=== PATIENT | male | born 1970 | race Caucasian/White ===

== ENCOUNTER 2023-03-31 02:14 | Inpatient (IN) | payer OTHER ==
[~2023-03-31] VITALS: Ht 190.8 cm; Wt 111.8 kg
--- NOTE | 2023-03-31 04:04 | Tele-ICU Progress Note ---
Subjective Date Seen by a Provider: Mar 31, 2023 Subjective/Events-last exam This virtual visit was conducted using real time audio/video. Thank you for asking us to see this patient for critical care services due to NSTEMI and CHF. Recent events: Transferred from [facility], no records or X-Ray reports available. PMH: CHF, DM PE: Currently asymptomatic. VSS. O2 sat 92% on RA HEENT: No obvious masses, adenopathy or JVD. Chest: clear to auscultation. CV: RRR S1 S2 No murmur or added sounds. Abd: Non-tender. Bowel sounds Y. : Unremarkable. Joyce N. HOUSE BUILDER/psychiatric: Grossly intact. No obvious focal findings. Extremities: 3+ edema. Capillary refill < 3 seconds. Skin: unremarkable. Results: Elevated BNP 1700, Trop 248.. Available chart/ vitals / labs / images reviewed. Video assessment done using teleICU camera, rest of exam as per RN. A/P: Critical Care: critically ill patient. Cont. Diuressis with Lasix. Cont ASA and SSI. Cardiac cath later today. Discussed with SACHA Garcia. Asked RN to reach out to eICU if any questions or concerns later. Time spent with patient/coordination of care with other health professionals (mins): 20 Sepsis Event Evaluation Height, Weight, BMI Height: '" Weight: lbs. oz. kg; BMI Method: Exam Exam Patient acknowledged, consented, and participated in this virtual visit which was conducted using real time audio/video Height & Weight Height: '" Weight: lbs. oz. kg; BMI Method: General Appearance: No Apparent Distress, Thin Peripheral Pulses: 2+ Dorsalis Pedis (R), 2+ Left Dors-Pedis (L) (See free text) Assessment/Plan Assessment/Plan See free text. Critical Care: Critically Ill Patient AURELIA STANFORD MD Mar 31, 2023 04:04
[2023-03-31 05:36] LABS: BASOPHILS # (AUTO) 0.1 10^3/uL (0.0-0.1); BASOPHILS % (AUTO) 1 % (0-10); EOSINOPHILS # (AUTO) 0.2 10^3/uL (0.0-0.3); EOSINOPHILS % (AUTO) 2 % (0-10); HEMATOCRIT 41 % (40-54); HEMOGLOBIN 13.3 g/dL (13.3-17.7); LYMPHOCYTES # (AUTO) 2.4 10^3/uL (1.0-4.0); LYMPHOCYTES % (AUTO) 22 % (12-44); MEAN CORPUSCULAR HEMOGLOBIN 28 pg (25-34); MEAN CORPUSCULAR HGB CONC 33 g/dL (32-36); MEAN CORPUSCULAR VOLUME 86 fL (80-99); MEAN PLATELET VOLUME 9.8 fL (9.0-12.2); MONOCYTES # (AUTO) 0.9 10^3/uL (0.0-1.0); MONOCYTES % (AUTO) 9 % (0-12); NEUTROPHILS # (AUTO) 7.2 10^3/uL (1.8-7.8); NEUTROPHILS % (AUTO) 67 % (42-75); PLATELET COUNT 318 10^3/uL (130-400); WHITE BLOOD COUNT 10.9 10^3/uL (4.3-11.0)
[2023-03-31 05:56] LABS: POTASSIUM 3.6 MMOL/L (3.6-5.0)
[2023-03-31 05:57] LABS: CALCIUM 8.4 MG/DL (8.5-10.1)
[2023-03-31 06:02] LABS: CREATININE SERUM 0.86 MG/DL (0.60-1.30)
[2023-03-31] MEDS: inSUlin ASPART 1 UNIT/0.01 ML (PER UNIT) SC SCH ×4 (06:34→20:34)
--- NOTE | 2023-03-31 07:44 | Consultation-Cardiology ---
HPI-Cardiology Cardiology Consultation Date of Consultation 03/31/23 Date of Admission Time Seen by Provider: 07:41 Indication: Shortness of breath HPI 52-year-old gentleman with questionable history of congestive heart failure admitted for increasing swelling and shortness of breath. Denied any chest pain or palpitation Patient reported that he is following with Dr. Min at [place], reporting that he had a cardiac catheterization 6 or 7 years ago and it was normal. He denied any syncope or near syncopal episode transferred from [facility], reportedly had mild elevation in troponin. Home Medications & Allergies Allergies: Coded Allergies: No Known Drug Allergies (Unverified , 03/31/23) Home Medication List Reviewed: Yes [id number] Hx Patient Social History Employed/Student: unemployed Smoking Status: Never a Smoker Alcohol Use?: No Past Medical History Discussed below Family Medical History Significant Family History: No Pertinent Family Hx Review of Systems-General Review of Systems Constitutional: no symptoms reported, see HPI EENTM: see HPI, no symptoms reported Respiratory: see HPI; No cough; dyspnea on exertion; No hemoptysis, No orthopnea, No phlegm, No short of breath, No stridor, No wheezing, No other Cardiovascular: see HPI, edema Gastrointestinal: no symptoms reported, see HPI Genitourinary: no symptoms reported, see HPI Musculoskeletal: no symptoms reported, see HPI Skin: no symptoms reported, see HPI Psychiatric/Neurological: No Symptoms Reported, See HPI Reviewed Test Results Reviewed Test Results Lab Laboratory Tests Test 03/31/23 05:28 Range/Units White Blood Count 10.9 4.3-11.0 10^3/uL Red Blood Count 4.72 4.30-5.52 10^6/uL Hemoglobin 13.3 13.3-17.7 g/dL Hematocrit 41 40-54 % Mean Corpuscular Volume 86 80-99 fL Mean Corpuscular Hemoglobin 28 25-34 pg Mean Corpuscular Hemoglobin Concent 33 32-36 g/dL Red Cell Distribution Width 16.2 H 10.0-14.5 % Platelet Count 318 130-400 10^3/uL Mean Platelet Volume 9.8 9.0-12.2 fL Immature Granulocyte % (Auto) 0 % Neutrophils (%) (Auto) 67 42-75 % Lymphocytes (%) (Auto) 22 12-44 % Monocytes (%) (Auto) 9 0-12 % Eosinophils (%) (Auto) 2 0-10 % Basophils (%) (Auto) 1 0-10 % Neutrophils # (Auto) 7.2 1.8-7.8 10^3/uL Lymphocytes # (Auto) 2.4 1.0-4.0 10^3/uL Monocytes # (Auto) 0.9 0.0-1.0 10^3/uL Eosinophils # (Auto) 0.2 0.0-0.3 10^3/uL Basophils # (Auto) 0.1 0.0-0.1 10^3/uL Immature Granulocyte # (Auto) 0.0 0.0-0.1 10^3/uL Sodium Level 142 135-145 MMOL/L Potassium Level 3.6 3.6-5.0 MMOL/L Chloride Level 108 H 98-107 MMOL/L Carbon Dioxide Level 22 21-32 MMOL/L Anion Gap 12 5-14 MMOL/L Blood Urea Nitrogen 10 7-18 MG/DL Creatinine 0.86 0.60-1.30 MG/DL Estimat Glomerular Filtration Rate 105 BUN/Creatinine Ratio 12 Glucose Level 127 H 70-105 MG/DL Calcium Level 8.4 L 8.5-10.1 MG/DL Physical Exam Physical Exam Vital Signs Vital Signs - First Documented 03/31/23 03/31/23 03/31/23 03:38 03:45 03:53 Temp 36.7 Pulse 110 Resp 12 B/P (MAP) 119/87 (99) Pulse Ox 95 O2 Delivery Room Air Capillary Refill : Height, Weight, BMI Height: '" Weight: lbs. oz. kg; 30.82 BMI Method: General Appearance: No Apparent Distress, Thin Eyes: Bilateral Eye Normal Inspection, Bilateral Eye PERRL, Bilateral Eye EOMI HEENT: PERRL/EOMI, TMs Normal, Normal ENT Inspection, Pharynx Normal, Moist Mucous Membranes Neck: Full Range of Motion, Normal Inspection, Non Tender, Supple, Carotid Bruit Respiratory: Chest Non Tender, Normal Breath Sounds, No Accessory Muscle Use, No Respiratory Distress Cardiovascular: Regular Rate, Rhythm, No Edema, No Gallop, No JVD, No Murmur, Normal Peripheral Pulses Gastrointestinal: Normal Bowel Sounds, No Organomegaly, No Pulsatile Mass, Non Tender, Soft Back: Normal Inspection, No CVA Tenderness, No Vertebral Tenderness Extremity: Normal Capillary Refill, Normal Inspection, Normal Range of Motion, Non Tender, No Calf Tenderness, No Pedal Edema Neurologic/Psychiatric: Alert, Oriented x3, No Motor/Sensory Deficits, Normal Mood/Affect Skin: Normal Color, Warm/Dry Lymphatic: No Adenopathy A/P-Cardiology Admission Diagnosis Shortness of breath Peripheral edema Congestive heart failure Hypertension Assessment/Plan Shortness of breath, peripheral edema Improved overnight Feeling better at this time. Questionable congestive heart failure I will evaluate 2D echo We will give Lasix IV 40 mg 1 dose Congestive heart failure, reporting history of congestive heart failure. No signs of heart failure at this point. We will evaluate 2D echo Hypertension, monitor blood pressure Hyperglycemia/diabetes mellitus, managed by primary care physician Patient is clinically stable and feeling better. Okay for discharge after echocardiogram is done JOHN ZAMARRIPA MD Mar 31, 2023 07:44
[2023-03-31 08:21] LABS: POTASSIUM 3.5 MMOL/L (3.6-5.0)
[2023-03-31 08:22] LABS: CALCIUM 8.5 MG/DL (8.5-10.1)
[2023-03-31 08:26] LABS: CREATININE SERUM 0.87 MG/DL (0.60-1.30)
[2023-03-31] MEDS ORDERED: ASPIRIN 325 MG TABLET PO SCH (09:00)
[2023-03-31] MEDS ORDERED: FUROSEMIDE INJECTION 40 MG/4 ML VIAL IVP SCH (09:00)
[2023-03-31] MEDS ORDERED: POTASSIUM CHLORIDE 20 MEQ TABLET PO NR (10:30)
[2023-03-31] MEDS ORDERED: NITROGLYCERIN 0.4 MG SL TABLETS BTL 25'S SL PRN (11:00)
[2023-03-31] MEDS ORDERED: morphine INJ 4 MG/ML 1 ML (VIAL/SYRINGE) IV PRN (11:00)
--- NOTE | 2023-03-31 12:03 | History & Physical-Hospitalist ---
BEATRIZ MOODY 03/31/23 1203: History of Present Illness HPI/Chief Complaint Jake Rivas (Ernie) is a 52 yo male with a hx of CHF, T2DM, and HTN here for ev aluation of shortness of breath and edema. Pt is currently imprisoned. He experienced SOB this morning along with a burning sensation down his left arm and abnormal pedal edema. He was seen at [facility] and had a troponin of 248 and a BNP of 1700. CXR was unremarkable. He was transported to [facility] along with an officer where he was given 40 mg Lasix. An EKG showed sinus tachycardia with suspicion of an inferior infarct and an Echo showed an EF of 20-25%. Another troponin was drawn at 0.423 with a BNP of 1365. Vitals are unremarkable other than sinus tachycardia. Pt is currently not experiencing SOB. Sees Dr. Min at [facility] for cardiology. Pt mentioned the senior living decided to discontinue his Entresto, his last dose was yesterday morning. Patient had a cholecystectomy in February 2023. Source: patient Exam Limitations: no limitations Date Seen 03/31/23 Time Seen by a Provider: 11:00 Attending Physician No,Local Physician PCP Admitting Physician: Isaias Etienne MD Attending Physician: Isaias Etienne MD Referring Physician Date of Admission Mar 31, 2023 at 03:26 Home Medications & Allergies Home Medications Reviewed patient Home Medication Reconciliation performed by pharmacy medication reconciliations critical systems technician and/or nursing. Patients Allergies have been reviewed. Allergies Allergies Coded Allergies No Known Drug Allergies (Unverified03/31/23) Past Wigsbxh-Kdjmfq-Qvdtxr Hx Patient Social History Employed/Student: unemployed Tobacco Use?: No Smoking Status: Never a Smoker Smokeless Tobacco Frequency: Never a User Use of E-Cig and/or Vaping dev: No Substance use?: No Alcohol Use?: No Pt feels they are or have been: No Current Status Communicates: Verbally Primary Language: Dominican Preferred Spoken Language: Dominican Is interpretation needed?: No Family Medical History No Pertinent Family Hx Review of Systems Constitutional: no symptoms reported Respiratory: see HPI Cardiovascular: see HPI Gastrointestinal: no symptoms reported Genitourinary: no symptoms reported Musculoskeletal: no symptoms reported Skin: no symptoms reported Psychiatric/Neurological: No Symptoms Reported Physical Exam Physical Exam Vital Signs Vital Signs - First Documented 03/31/23 03/31/23 03/31/23 03:38 03:45 03:53 Temp 36.7 Pulse 110 Resp 12 B/P (MAP) 119/87 (99) Pulse Ox 95 O2 Delivery Room Air Capillary Refill : Height, Weight, BMI Height: '" Weight: lbs. oz. kg; 30.82 BMI Method: General Appearance: No Apparent Distress, WD/WN HEENT: PERRL/EOMI Neck: Full Range of Motion Respiratory: Lungs Clear, Normal Breath Sounds, No Respiratory Distress; No Crackles Cardiovascular: Regular Rate, Rhythm, No Gallop, No JVD, No Murmur, Normal Peripheral Pulses Gastrointestinal: Normal Bowel Sounds Extremity: Pedal Edema Neurologic/Psychiatric: Alert, Oriented x3, Normal Mood/Affect Skin: Normal Color, Warm/Dry Results Results/Procedures Labs Laboratory Tests 03/31/23 05:28 03/31/23 07:55 Patient resulted labs reviewed. Assessment/Plan Admission Diagnosis NSTEMI Admission Status: Observation Assessment and Plan NSTEMI repeat troponin in 6 hours for trend pt received aspirin, ordered nitroglycerin start morphine PRN Dr. Kraft will follow up CHF will talk to [facility] to restart Entresto continue Lasix 40 mg BID pending Echo report DM continue Jardiance HTN continue carvedilol BP well controlled Diagnosis/Problems Diagnosis/Problems (1) NSTEMI (non-ST elevation myocardial infarction) Status: Acute (2) CHF (congestive heart failure) Status: Chronic (3) T2DM (type 2 diabetes mellitus) Status: Chronic Qualifiers: Diabetes mellitus manager terminal insulin use: without detention use (4) HTN (hypertension) Status: Chronic Qualifiers: Hypertension type: primary hypertension Qualified Codes: I10 - Essential (primary) hypertension GAIL WAGGONER MD 03/31/23 1316: Assessment/Plan Assessment and Plan Patient with a history of cardiomyopathy who presented with shortness of breath and lower extremity edema and elevated troponin. He was admitted to the ICU and cardiology has been consulted. Repeat troponin is still been elevated so we plan to trend this and if it remains elevated he will likely need cardiac cath. He had recently been stopped on his Entresto but we discussed the need to restart that. Left voicemail for INFANT BABYSITTER at the long term. Supervisory-Addendum Brief Verification & Attestation Participated in pt care: history, MDM, physical Personally performed: exam, history, MDM, supervision of care Care discussed with: Medical Student Procedures: n/a Results interpretation: Verified all documentation Verification and Attestation of Medical Student E/M Service A medical student performed and documented this service in my presence. I reviewed and verified all information documented by the medical student and made modifications to such information, when appropriate. I personally performed the physical exam and medical decision making. Gail Waggoner, Mar 31, 2023,13:11 BEATRIZ MOODY Mar 31, 2023 12:03 GAIL WAGGONER MD Mar 31, 2023 13:16
[2023-03-31] MEDS ORDERED: EMPA10TA PO (12:08)
[2023-03-31] MEDS ORDERED: CARV3.122 PO (12:08)
[2023-03-31] MEDS ORDERED: POTA-330 PO (12:08)
[2023-03-31] MEDS ORDERED: SACU1TAB2 PO (12:08)
[2023-03-31] MEDS ORDERED: RT-ALBUINH INH (12:08)
[2023-03-31] MEDS ORDERED: ACET325T38 PO (12:08)
[2023-03-31] MEDS ORDERED: FURO40TA4 PO (12:08)
[2023-03-31] MEDS ORDERED: HEParin (CATH LAB) 2,000 ML IV ONE (13:26)
[2023-03-31] MEDS ORDERED: LIDOCAINE 1% INJ 20 ML VIAL ONE (13:26)
[2023-03-31] MEDS: ONDANSETRON INJECTION 4 MG/2 ML (SDV) IVP PRN (14:24)
[2023-03-31] MEDS ORDERED: VERAPAMIL 5 MG/2 ML (CALAN) VIAL IV ONE (15:31)
[2023-03-31] MEDS ORDERED: fentaNYL INJECTION 100 MCG/2 ML VIAL ONE (15:31)
[2023-03-31] MEDS ORDERED: NITRO DRIP 25000 MCG/D5W 250 ML IV ONE (15:32)
[2023-03-31] MEDS ORDERED: HEParin 1000 UNIT/ML (10ML VIAL) FOR BOLUS ONE (15:32)
[2023-03-31] MEDS ORDERED: MIDAZOLAM INJ 5 MG/5 ML VIAL ONE (15:32)
[2023-03-31] MEDS ORDERED: NS IV 1000 ML 1,000 ML ONE (15:43)
--- NOTE | 2023-03-31 16:22 | Cardiac Cath Report ---
Cardiac Cath Report Physician (s)/Shirt Turner (s) Physician JOHN ZAMARRIPA MD Pre-Procedure Diagnosis Pre-Procedure Diagnosis: CHF Post-Procedure Note Procedure Start Date: Mar 31, 2023 Name of Procedure: Left heart catheterization Findings/Procedure Note PROCEDURE NOTE: 52-year-old gentleman with severe cardiomyopathy, had elevated troponin. No recent cardiac work-up, last cardiac catheterization according to the patient was done in 2014. Cardiac angiogram was advised. After explaining the procedure to the patient, all pros and cons were explained, all questions were answered. The patient signed the consent and then he was placed in the cardiac catheterization laboratory. Groin was prepped in SL f ashion local anesthesia was used. Sheath placed in the right radial artery, [place] catheter was advanced to the left ventricular cavity, pressure was measured, pullback LV to aorta was done, engage the right and left coronary system, angiogram was done. At the end of the procedure the sheath was removed. Vascular band was used FINDINGS: Hemodynamics LV 103/31 end-diastolic pressure of 31 Aorta 103/71 mean of 79 ANATOMY: Left Main is free of obstructive disease Left Anterior Descending is free of obstructive disease Left Circumflex is free of obstructive disease Right Coronary Artery is dominant artery with no obstructive disease LV Gram was not done, pressure was measured CONCLUSION: Dilated nonischemic cardiomyopathy No significant obstructive disease in the coronary system DISCUSSION AND RECOMMENDATION: Continue to maximize medical therapy, no intervention is warranted Anesthesia Type: Conscious Sedation Estimated blood loss (mL): 10 ml Contrast Amount: 35 ml Total Radiation Dose: 453 mGy Post-Procedure Diagnosis Post-operative diagnosis: Congestive heart failure Type II myocardial infarction, secondary to congestive heart failure Diabetes mellitus Hypertension JOHN ZAMARRIPA MD Mar 31, 2023 16:22
--- NOTE | 2023-03-31 16:27 | Cardiac Procedure Note-CS/ASA ---
Pre-Procedure Note Pre-Op Procedure Note Date of Available H&P: Mar 31, 2023 Date H&P Reviewed: Mar 31, 2023 Time H&P Reviewed: 15:00 History & Physical: H&P Reviewed, Patient Examed, No changes noted Pre-Operative Diagnosis: CHF Moderate Sedation PreProcedure Time 15:00 ASA Score 3 Airway Lungs Heart ASA score ASA 1: a normal healthy patient ASA 2: a patient with a mild systemic disease (mid diabetes, controlled hypertension, obesity ASA 3: a patient with a severe systemic disease that limits activity (angina, COPD, prior Myocardial infarction) ASA 4: a patient with an incapacitating disease that is a constant threat to life (CHF, renal failure) ASA 5: a moribund patient not expected to survive 24 hrs. (ruptured aneurysm) ASA 6: a declared brain- patient whose organs are being harvested. For emergent operations, add the letter E after the classification Mallampati Classification Grade 3 Sedation Plan Analgesia, Amnesia, Plan communicated to team members, Discussed options with patient/fam, Discussed risks with patient/fam The patient is an appropriate candidate to undergo the planned procedure, sedation, and anesthesia. The patient immediately re-assessed prior to indication. JOHN ZAMARRIPA MD Mar 31, 2023 16:27
[2023-03-31] MEDS: NS IV 1000 ML 1,000 ML IV SCH (16:36)
[2023-03-31] MEDS: FUROSEMIDE 40 MG TABLET PO SCH (17:39)
[2023-03-31] MEDS: carvediloL 3.125 MG TABLET PO SCH (20:34)
[2023-04-01] MEDS: NS IV 1000 ML 1,000 ML IV SCH ×2 (03:18→13:07)
[2023-04-01] MEDS: inSUlin ASPART 1 UNIT/0.01 ML (PER UNIT) SC SCH ×2 (06:02→11:00)
[2023-04-01] MEDS: FUROSEMIDE 40 MG TABLET PO SCH (06:06)
[2023-04-01] MEDS ORDERED: POTASSIUM CHLORIDE 20 MEQ TABLET PO SCH (07:00)
[2023-04-01 07:33] LABS: POTASSIUM 4.1 MMOL/L (3.6-5.0)
[2023-04-01 07:34] LABS: CALCIUM 8.6 MG/DL (8.5-10.1)
[2023-04-01 07:39] LABS: CREATININE SERUM 0.91 MG/DL (0.60-1.30)
[2023-04-01 07:41] LABS: MAGNESIUM 2.2 MG/DL (1.6-2.4)
[2023-04-01] MEDS: carvediloL 3.125 MG TABLET PO SCH (08:11)
--- NOTE | 2023-04-01 08:50 | Cardiology Progress Note ---
Subjective Date Seen by Provider: Apr 01, 2023 Time Seen by Provider: 08:48 Subjective/Events-last exam Patient was seen at bedside, laying down comfortably, feeling better. Review of Systems General: No Chills, No Night Sweats, No Fatigue, No Malaise, No Appetite, No Other HEENT: No Head Aches, No Visual Changes, No Eye Pain, No Ear Pain, No Dysphasia, No Sinus Congestion, No Post Nasal Drip, No Sore Throat, No Other Pulmonary: No Dyspnea, No Cough, No Pleuritic Chest Pain, No Other Cardiovascular: No: Chest Pain, Palpitations, Orthopnea, Paroxysmal Noc. Dyspnea, Edema, Lt Headedness, Other Objective-Cardiology Exam Last Set of Vital Signs Vital Signs 04/01/23 04/01/23 07:57 08:00 Temp 36.0 Pulse 100 Resp 34 Pulse Ox 96 O2 Delivery Room Air I&O Intake and Output 04/01/23 00:00 Intake Total 3150 ml Output Total 5050 ml Balance -1900 ml Intake Oral 2150 ml IV Total 1000 ml Output Urine Total 5050 ml # Bowel Movements 1 Daily Weight Change No General: Alert, Oriented X3, Cooperative HEENT: Atraumatic, PERRLA Neck: Supple, No JVD, No Thyromegaly Lungs: Clear to Auscultation, Normal Air Movement Heart: Regular Rate, Normal S1, Normal S2, No Murmurs Abdomen: Normal Bowel Sounds, Soft, No Tenderness, No Hepatosplenomegaly, No Masses Extremities: No Clubbing, No Cyanosis, No Edema, Normal Pulses, No Tenderness/Swelling Skin: No Rashes, No Breakdown, No Significant Lesion Neuro: Normal Gait, Normal Speech, Strength at 5/5 X4 Ext, Normal Tone, Sens ation Intact Psych/Mental Status: Mental Status NL, Mood NL Results Lab Laboratory Tests 04/01/23 07:10 A/P-Cardiology Admission Diagnosis Shortness of breath Peripheral edema Congestive heart failure Hypertension Assessment/Plan Congestive heart failure, acute on chronic left ventricular systolic dysfunction, dilated cardiomyopathy Nonischemic in nature. Restart Coreg and Entresto, add Jardiance and Aldactone Okay for discharge 2D echo done on March 31, 2023 with four-chamber dilatation, ejection fraction 20 to 25%, moderate to severe mitral regurgitation, moderate tricuspid re gurgitation, PA pressure 65 to 70 mmHg Cardiac catheterization carried out on March 31, 2023 showing dilated cardiomyopathy with nonobstructive coronary disease. Hypertension, monitor blood pressure Hyperglycemia/diabetes mellitus, managed by primary care physician Patient is clinically stable and feeling better. Okay for discharge after echocardiogram is done Patient requested to follow-up with his primary embosser operator JOHN Davis MD Apr 01, 2023 08:50
[2023-04-01] MEDS ORDERED: SACU1TAB2 PO (08:52)
[2023-04-01] MEDS ORDERED: SPIR25TA5 PO (08:52)
[2023-04-01] MEDS ORDERED: ASPIRIN enteric coated 81MG TABLET PO SCH (09:00)
[2023-04-01] MEDS ORDERED: LOSARTAN 25 MG TABLET PO SCH (09:00)
[2023-04-01] MEDS ORDERED: NON-FORMULARY MEDICATION 1 EA EA (Potassium Chloride 20 MEQ) PO SCH (09:00)
[2023-04-01] MEDS ORDERED: EMPAGLIFLOZIN 10 MG TABLET PO SCH (09:00)
[2023-04-01] MEDS ORDERED: LOSA25TA41 PO (10:07)
--- NOTE | 2023-04-01 10:10 | Discharge Inst-Simple/Standard ---
Discharge Inst-Standard Discharge Medications New, Converted or Re-Newed RX: Transmitted to Pharmacy Patient Instructions/Follow Up Plan of Care/Instructions/FU: Please continue to take your medications as written. Please follow up with your primary care doctor to follow up this hospital stay. Activity as Tolerated: Yes Discharge Diet: Low Sodium Diet Return to The Hospital For: Chest pain, shortness of breath, fever, weakness, if you feel you are getting worse. GAIL CHAVIRA MD Apr 01, 2023 10:10
--- NOTE | 2023-04-01 10:48 | Discharge Summary ---
Diagnosis/Chief Complaint Date of Admission Mar 31, 2023 at 03:26 Date of Discharge Discharge Date: Apr 01, 2023 Admission Diagnosis NSTEMI Primary Care No,Local Physician Discharge Diagnosis (1) NSTEMI (non-ST elevation myocardial infarction) Status: Acute (2) CHF (congestive heart failure) Status: Chronic (3) T2DM (type 2 diabetes mellitus) Status: Chronic (4) HTN (hypertension) Status: Chronic Discharge Summary Discharge Physical Exam Allergies: Coded Allergies: No Known Drug Allergies (Unverified , 03/31/23) Vitals & I&Os Vital Signs Date Time Temp Pulse Resp B/P (MAP) Pulse Ox O2 Delivery O2 Flow Rate FiO2 04/01/23 10:00 114 36 93 Room Air 04/01/23 07:57 36.0 Hospital Course Labs (last 24 hrs) Laboratory Tests 03/31/23 11:57: Troponin I 0.430*H 03/31/23 12:00: Glucometer 159H 03/31/23 13:07: Glucometer 152H 03/31/23 16:45: Glucometer 131H 03/31/23 20:19: Glucometer 200H 04/01/23 05:59: Glucometer 164H 04/01/23 07:10: Sodium Level 136, Potassium Level 4.1, Chloride Level 105, Carbon Dioxide Level 21, Anion Gap 10, Blood Urea Nitrogen 18, Creatinine 0.91, Estimat Glomerular Filtration Rate 102, BUN/Creatinine Ratio 20, Glucose Level 178H, Calcium Level 8.6, Magnesium Level 2.2 04/01/23 10:42: Glucometer 189H Microbiology 03/31/23 MRSA Screen - Final, Complete MRSA not isolated Patient resulted labs reviewed. Pending Labs Laboratory Tests 04/01/23 05:59: Glucometer 164 04/01/23 07:10: Sodium Level 136, Potassium Level 4.1, Chloride Level 105, Carbon Dioxide Level 21, Anion Gap 10, Blood Urea Nitrogen 18, Creatinine 0.91, Estimat Glomerular Filtration Rate 102, BUN/Creatinine Ratio 20, Glucose Level 178, Calcium Level 8.6, Magnesium Level 2.2 04/01/23 10:42: Glucometer 189 Discharge Home Medications: Active Scripts Active Losartan Potassium 25 Mg Tablet 25 Mg PO DAILY Spironolactone 25 Mg Tablet 25 Mg PO DAILY Reported Ventolin Hfa (Albuterol Sulfate) 1 Puff Puff 2 Puff INH BID PRN Potassium Chloride 20 Meq Tablet.er 20 Meq PO DAILY Jardiance (Empagliflozin) 10 Mg Tablet 10 Mg PO DAILY Furosemide 40 Mg Tablet 40 Mg PO BID Carvedilol 3.125 Mg Tablet 3.125 Mg PO BID Tylenol (Acetaminophen) 325 Mg Tablet 650 Mg PO BID PRN Instructions to patient/family Please see electronic discharge instructions given to patient. Problem Qualifiers (1) T2DM (type 2 diabetes mellitus): Diabetes mellitus ferry terminal supervisor insulin use: without ferry terminal supervisor use (2) HTN (hypertension): Hypertension type: primary hypertension Qualified Codes: I10 - Essential (primary) hypertension GAIL CHAVIRA MD Apr 01, 2023 10:48
--- NOTE | 2023-04-01 10:56 | Discharge Summary ---
BEATRIZ MOODY 04/01/23 1056: Diagnosis/Chief Complaint Date of Admission Mar 31, 2023 at 03:26 Date of Discharge Discharge Date: Apr 01, 2023 Admission Diagnosis NSTEMI Primary Care No,Local Physician Discharge Diagnosis (1) Type 2 myocardial infarction due to heart failure Status: Resolved (2) CHF (congestive heart failure) Status: Chronic (3) T2DM (type 2 diabetes mellitus) Status: Chronic (4) HTN (hypertension) Status: Chronic Discharge Summary Discharge Physical Exam Allergies: Coded Allergies: No Known Drug Allergies (Unverified , 03/31/23) Vitals & I&Os Vital Signs Date Time Temp Pulse Resp B/P (MAP) Pulse Ox O2 Delivery O2 Flow Rate FiO2 04/01/23 10:00 114 36 93 Room Air 04/01/23 07:57 36.0 General Appearance: No Apparent Distress, WD/WN HEENT: PERRL/EOMI Respiratory: Lungs Clear, Normal Breath Sounds, No Respiratory Distress Cardiovascular: Regular Rate, Rhythm, No Gallop, No JVD, No Murmur, Normal Peripheral Pulses Gastrointestinal: Normal Bowel Sounds Extremity: Pedal Edema (+1 right ankle) Skin: Normal Color, Warm/Dry Neurologic/Psychiatric: Alert, Oriented x3, Normal Mood/Affect Hospital Course Labs (last 24 hrs) Laboratory Tests 03/31/23 11:57: Troponin I 0.430*H 03/31/23 12:00: Glucometer 159H 03/31/23 13:07: Glucometer 152H 03/31/23 16:45: Glucometer 131H 03/31/23 20:19: Glucometer 200H 04/01/23 05:59: Glucometer 164H 04/01/23 07:10: Sodium Level 136, Potassium Level 4.1, Chloride Level 105, Carbon Dioxide Level 21, Anion Gap 10, Blood Urea Nitrogen 18, Creatinine 0.91, Estimat Glomerular Filtration Rate 102, BUN/Creatinine Ratio 20, Glucose Level 178H, Calcium Level 8.6, Magnesium Level 2.2 04/01/23 10:42: Glucometer 189H Microbiology 03/31/23 MRSA Screen - Final, Complete MRSA not isolated Patient resulted labs reviewed. Pending Labs Laboratory Tests 04/01/23 05:59: Glucometer 164 04/01/23 07:10: Sodium Level 136, Potassium Level 4.1, Chloride Level 105, Carbon Dioxide Level 21, Anion Gap 10, Blood Urea Nitrogen 18, Creatinine 0.91, Estimat Glomerular Filtration Rate 102, BUN/Creatinine Ratio 20, Glucose Level 178, Calcium Level 8.6, Magnesium Level 2.2 04/01/23 10:42: Glucometer 189 Discharge Home Medications: Active Scripts Active Losartan Potassium 25 Mg Tablet 25 Mg PO DAILY Spironolactone 25 Mg Tablet 25 Mg PO DAILY Reported Ventolin Hfa (Albuterol Sulfate) 1 Puff Puff 2 Puff INH BID PRN Potassium Chloride 20 Meq Tablet.er 20 Meq PO DAILY Jardiance (Empagliflozin) 10 Mg Tablet 10 Mg PO DAILY Furosemide 40 Mg Tablet 40 Mg PO BID Carvedilol 3.125 Mg Tablet 3.125 Mg PO BID Tylenol (Acetaminophen) 325 Mg Tablet 650 Mg PO BID PRN Instructions to patient/family Please see electronic discharge instructions given to patient. GAIL CHAVIRA MD 04/01/23 1217: Discharge Summary Discharge Physical Exam Allergies: Coded Allergies: No Known Drug Allergies (Unverified , 03/31/23) Supervisory-Addendum Brief Verification & Attestation Participated in pt care: history, MDM, physical Personally performed: exam, history, MDM, supervision of care Care discussed with: Medical Student Procedures: n/a Results interpretation: Verified all documentation Verification and Attestation of Medical Student E/M Service A medical student performed and documented this service in my presence. I reviewed and verified all information documented by the medical student and made modifications to such information, when appropriate. I personally performed the physical exam and medical decision making. Gail Chavira, Apr 01, 2023,12:17 Problem Qualifiers (1) T2DM (type 2 diabetes mellitus): Diabetes mellitus alf insulin use: without buttermaker use (2) HTN (hypertension): Hypertension type: primary hypertension Qualified Codes: I10 - Essential (primary) hypertension BEATRIZ MOODY Apr 01, 2023 10:56 GAIL CHAVIRA MD Apr 01, 2023 12:17
[2023-04-01] MEDS: ONDANSETRON INJECTION 4 MG/2 ML (SDV) IVP PRN (13:07)
== END 2023-04-01 13:30 | DRG 280 ==
LOC: ICU 03:26
PROVIDERS: ADMIT Internal Medicine; ATTEND Internal Medicine
PROC: 4A023N7 Measurement of Cardiac Sampling and Pressure, Left Heart, Percutaneous Approach (ICD-10-PCS; principal; 2023-03-31)
PROC: B2111ZZ Fluoroscopy of Multiple Coronary Arteries using Low Osmolar Contrast (ICD-10-PCS; 2023-03-31)
DX: I11.0 Hypertensive heart disease with heart failure (principal); I50.23 Acute on chronic systolic (congestive) heart failure; I21.A1 Myocardial infarction type 2; E11.9 Type 2 diabetes mellitus without complications; I42.0 Dilated cardiomyopathy; I08.1 Rheumatic disorders of both mitral and tricuspid valves; Z79.84 Long term (current) use of oral hypoglycemic drugs; Z79.899 Other long term (current) drug therapy
CPT/HCPCS: 36415; 80048; 82947; 83735; 83880; 84484; 85025; 87081; 93005; 93306; 93458